=== PATIENT | female | born 1965 | race Caucasian/White ===

== ENCOUNTER → 2019-04-21 11:11 | Outpatient (BNVA) | payer BC, SELFPAY | PROVIDERS: Family Provider Nurse Practitioner Family; PCP Nurse Practitioner Family; Visit Provider Registered Nurse | DX: I10 Essential (primary) hypertension (principal); E03.9 Hypothyroidism, unspecified | CPT/HCPCS: 80053; 80061; 84443; 85025 ==

== ENCOUNTER → 2019-10-31 08:51 | Outpatient (BNVA) | payer BC, SELFPAY | PROVIDERS: Family Provider Nurse Practitioner Family; PCP Nurse Practitioner Family; Visit Provider Registered Nurse | DX: E03.9 Hypothyroidism, unspecified (principal); I10 Essential (primary) hypertension | CPT/HCPCS: 80061; 84443 ==

== ENCOUNTER → 2020-05-07 08:58 | Outpatient (BNVA) | payer BC, SELFPAY | PROVIDERS: Family Provider Nurse Practitioner Family; PCP Nurse Practitioner Family; Visit Provider Nurse Practitioner Family | DX: E03.9 Hypothyroidism, unspecified (principal); E78.2 Mixed hyperlipidemia; I10 Essential (primary) hypertension; E78.5 Hyperlipidemia, unspecified; E07.9 Disorder of thyroid, unspecified | CPT/HCPCS: 80053; 80061; 84443 ==

== ENCOUNTER → 2021-03-15 09:00 | Outpatient (BNVA) | payer BC, SELFPAY | PROVIDERS: Family Provider Nurse Practitioner Family; PCP Nurse Practitioner Family; Visit Provider Nurse Practitioner Family | DX: Z20.822 Contact with and (suspected) exposure to COVID-19 (principal) | CPT/HCPCS: 87635 ==

== ENCOUNTER → 2021-06-06 10:09 | Outpatient (BNVA) | payer BC, SELFPAY | PROVIDERS: Family Provider Nurse Practitioner Family; PCP Nurse Practitioner Family; Visit Provider Nurse Practitioner Family | DX: E03.9 Hypothyroidism, unspecified (principal); E78.5 Hyperlipidemia, unspecified; I10 Essential (primary) hypertension; E78.2 Mixed hyperlipidemia | CPT/HCPCS: 80053; 80061; 84443 ==

== ENCOUNTER → 2022-01-27 11:26 | Outpatient (BNVA) | payer BC, SELFPAY | PROVIDERS: Family Provider Nurse Practitioner Family; PCP Nurse Practitioner Family; Visit Provider Nurse Practitioner Family | DX: R05.9 Cough, unspecified (principal); J40 Bronchitis, not specified as acute or chronic; Z90.89 Acquired absence of other organs; Z20.822 Contact with and (suspected) exposure to COVID-19 | CPT/HCPCS: 87400; 87426 ==

== ENCOUNTER → 2022-06-05 08:19 | Outpatient (BNVA) | payer BC, SELFPAY | PROVIDERS: Family Provider Nurse Practitioner Family; PCP Nurse Practitioner Family; Visit Provider Nurse Practitioner Family | DX: E03.9 Hypothyroidism, unspecified (principal); I10 Essential (primary) hypertension; E78.5 Hyperlipidemia, unspecified | CPT/HCPCS: 80053; 80061; 84443 ==

== ENCOUNTER → 2022-10-25 08:26 | Outpatient (BNVA) | payer OTHER, SELFPAY | PROVIDERS: Family Provider Nurse Practitioner Family; PCP Nurse Practitioner Family; Visit Provider Nurse Practitioner Family | DX: E03.9 Hypothyroidism, unspecified (principal); R11.0 Nausea | CPT/HCPCS: 80053; 83690; 84443; 85025; 86140 ==

== ENCOUNTER 2023-01-04 10:54 | Outpatient (CLI) | payer OTHER, SELFPAY ==
--- NOTE | 2023-01-04 11:00 | MM_ITS ---
WS: [id number] SCREENING DIGITAL BREAST TOMOSYNTHESIS MAMMOGRAM WITH CAD HISTORY: Z12.31 COMPARISON: 05/01/2013 Bilateral CC and MLO with tomosynthesis and synthetic mammography submitted. Computer aided detection analyzed. Breast composition: The breasts are heterogeneously dense, which may obscure small masses. Well-circu mscribed ovoid mass anterior central RIGHT breast near 6:00 measures 2.8 x 1.9 cm. This mass was prob ably present in 2013 but margins were obscured by overlying fibroglandular tissue. Benign calcificati on LEFT breast. IMPRESSION: MM/[place] [id number] BI-RADS: 0-Incomplete: Need additional imaging evaluation FOLLOW UP: Need Additional Imaging Recommendation: Follow-up RIGHT breast ultrasound evaluation well-circumscribed mass just behind the nipple toward 6:00. Favor this is probably a fibroadenoma or cyst as it was probably present in 2013.
== END 2023-01-04 10:55 | disposition home or self-care (01) ==
LOC: MOBLMAM 10:57
PROVIDERS: Family Provider Nurse Practitioner Family; PCP Nurse Practitioner Family; Visit Provider Nurse Practitioner Family
DX: Z12.31 Encounter for screening mammogram for malignant neoplasm of breast (principal)
CPT/HCPCS: 77063; 77067

== ENCOUNTER 2023-01-29 09:09 | Outpatient (CLI) | payer OTHER, SELFPAY ==
--- NOTE | 2023-01-29 09:30 | US_ITS ---
WS: [id number] ULTRASOUND RIGHT BREAST, limited HISTORY: N60.09 - Solitary cyst of unspecified breast COMPARISON: 01/04/2023, 05/01/2013 TECHNIQUE: 2-D and Doppler. There is a simple cyst RIGHT breast at 6:00, 1 cm from the nipple measures 2.9 x 1.0 x 1.9 cm. No nicolas id component or increased vascularity. This corresponds to the mammographic abnormality. There is a s mall adjacent cyst measuring less than a centimeter. No solid mass. IMPRESSION: US/US breast RT limited* [id number] BI-RADS: 2-Benign FOLLOW-UP: 1 Year Follow-up Mammographic mass noted on 01/04/2023 corresponds to a benign cyst. Return to a nnual screening mammography.
== END 2023-01-29 09:10 | disposition home or self-care (01) ==
LOC: RAD 09:10
PROVIDERS: Family Provider Nurse Practitioner Family; PCP Nurse Practitioner Family; Visit Provider Nurse Practitioner Family
DX: N60.01 Solitary cyst of right breast (principal)
CPT/HCPCS: 76642

== ENCOUNTER → 2023-05-11 13:32 | Outpatient (BNVA) | payer OTHER, SELFPAY | PROVIDERS: Family Provider Nurse Practitioner Family; PCP Nurse Practitioner Family; Visit Provider Nurse Practitioner Family | DX: R05.9 Cough, unspecified (principal); J32.9 Chronic sinusitis, unspecified; J06.9 Acute upper respiratory infection, unspecified; N95.0 Postmenopausal bleeding | CPT/HCPCS: 87400; 87426 ==

== ENCOUNTER 2023-05-16 11:12 | Outpatient (CLI) | payer OTHER, SELFPAY ==
--- NOTE | 2023-05-16 11:45 | US_ITS ---
WS: [id number] US pelv w/transvag [id number] HISTORY: N95.0 - Postmenopausal bleeding COMPARISON: None available. Uterus: 7.1 cm x 5.1 cm x 3.6 cm. Uterus is retroverted on transvaginal imaging. There is a hypoechoic mass consistent with a fibroid i n the LEFT myometrium measuring 1.8 x 1.4 x 1.3 cm. Endometrium: 0.8 cm. Thickened endometrium with a few tiny cystic areas. No mass is identified. Right ovary: 2.2 cm x 1.3 cm x 1.7 cm. Normal size and vascularity, no cystic or solid masses. Small follicle. Left ovary: 2.3 cm x 2.0 cm x 1.8 cm. Normal size and vascularity, no cystic or solid masses. No free fluid in the cul-de-sac. IMPRESSION: 1. Endometrium is mildly thickened for postmenopausal patient. There are also a few tiny cystic area s present within the endometrium. No solid mass or increased vascularity. Consider evaluation by [facility] [facility] and possible biopsy of the endometrium as the patient is postmenopausal. 2. LEFT uterine fibroid measuring 1.8 x 1.4 x 1.3 cm.
== END 2023-05-16 11:13 | disposition home or self-care (01) ==
LOC: RAD 11:12
PROVIDERS: Family Provider Nurse Practitioner Family; PCP Nurse Practitioner Family; Visit Provider Nurse Practitioner Family
DX: N95.0 Postmenopausal bleeding (principal); R93.89 Abnormal findings on diagnostic imaging of other specified body structures; D25.9 Leiomyoma of uterus, unspecified
CPT/HCPCS: 76830; 76856; 80053; 80061; 81000; 84443; 85025; 86304; 87070; 87086; 87205; 88175

== ENCOUNTER → 2023-05-22 08:33 | Outpatient (BNVA) | payer OTHER, SELFPAY | PROVIDERS: Family Provider Nurse Practitioner Family; PCP Nurse Practitioner Family; Visit Provider Nurse Practitioner Family | DX: D72.829 Elevated white blood cell count, unspecified (principal) | CPT/HCPCS: 85025 ==

== ENCOUNTER 2023-07-19 10:45 | Day surgery (SDC) | payer OTHER, SELFPAY ==
[2023-07-19] VITALS (10 sets, daily range): BP systolic 96–159; BP diastolic 54–77; PULSE 59–69; RESP 10–19; TEMP 36.3–36.4; O2SAT 94–98; BMI 36.3
--- NOTE | 2023-07-19 01:45 | W.PM.OPSFHP ---
Same Day Surgery H&P Indication for Procedure/HPI DATE OF PROCEDURE: July 19, 2023 CHIEF COMPLAINT/INDICATIONFOR SURGICAL PROCEDURE: abnormal uterine bleeding PREOP DIAGNOSIS: abnormal uterine bleeding PLANNED PROCEDURE: Operation Date: 07/19/23 13:25 Proposed Procedures p Hysteroscopy Hysteroscopy w/ Endometrial Sampling(Not Applicable) - Richie Germain MD s Poylpectomy/ possible endometrial polypectomy 77710, N95.0, R93.89(Not Applicable) - Richie Germain MD 58 y.o. last normal menstrual period in 2018 began to have bleeding and spotting in April 2023 Medications/Allergies* Allergies/Adverse Reactions Allergy/AdvReac Type Severity Reaction Status Date / Time No Known Allergies Allergy Verified 07/18/23 12:32 Pertinent History/Comorbid Conditions* Medical History (Updated 05/17/23 @ 09:28 by SANTO Gunderson) Hyperlipidemia Hypothyroid Essential hypertension Obstructive sleep apnea Surgical History (Updated 01/27/22 @ 11:12 by SANTO Gunderson) Hx of tonsillectomy Hx of adenoidectomy Family History (Updated 05/29/23 @ 08:23 by Tania Ozuna LPN) Diabetes Grandmother Heart disease Father Mother Hypertension Mother Family/Other Uterine cancer Mother Denies family history of Colon cancer Ovarian cancer Prostate cancer Hypercholesteremia Breast cancer Thyroid disease Stroke Pertinent Exam Findings alert, oriented x 3, clear to auscultation bilaterally and regular rate & rhythm Pertinent Data 05-16-23 Pap NILM, negative HPV 05-16-23 pelvic sono 1.8 cm fibroid Endometrium 8 mm with small cystic areas Normal ovaries Recommendations Surgery/Procedure today Coding Level of Care Code Acute Code for Chg Fwd Time Spent (min) 20
[2023-07-19] MEDS: scopolamine 1.5 Patch 1 PATCH TRANSDERMA (11:20)
[2023-07-19] MEDS: sodium chloride 0.9% 1,000 ML 30 ML IV (11:21)
--- NOTE | 2023-07-19 11:49 | W.PM.OPSUD ---
Surgery/Procedure H&P Update DATE OF PROCEDURE: July 19, 2023 DATE H&P PERFORMED: 07/19/23 H&P UPDATE INFORMATION: I have reviewed H&P completed within last 30 days, I have examined patient prior to procedure and No changes to prior documentation PREOP DIAGNOSIS: abnormal uterine bleeding PLANNED PROCEDURE: Operation Date: 07/19/23 13:25 Proposed Procedures p Hysteroscopy Hysteroscopy w/ Endometrial Sampling(Not Applicable) - Richie Germain MD s Poylpectomy/ possible endometrial polypectomy 07433, N95.0, R93.89(Not Applicable) - Richie Germain MD
--- NOTE | 2023-07-19 12:04 | ANES.PREANE2 ---
Pre-Anesthetic Assessment Height/Weight: Height 1.68 m Weight 102.058 kg Temp Pulse Resp BP Pulse Ox O2 Del Method 97.4 F L 59 L 18 159/77 96 Room Air 07/19/23 11:08 07/19/23 11:08 07/19/23 11:08 07/19/23 11:08 07/19/23 11:08 07/19/23 11:08 Preop Diagnosis: abnormal uterine bleeding Operation Date: 07/19/23 13:25 Proposed Procedures p Hysteroscopy Hysteroscopy w/ Endometrial Sampling(Not Applicable) - Richie Germain MD s Poylpectomy/ possible endometrial polypectomy 14200, N95.0, R93.89(Not Applicable) - Richie Germain MD Familial anesthetic complications: None Was Beta Lora taken within 24 hours: N/A Was Clonidine taken within 24 hours: N/A Last intake: Intake Last Liquid Date 07/18/23 Last Liquid Time 23:50 Last Solid Date 07/18/23 Last Solid Time 23:40 Social No alcohol and No tobacco Exam alert, oriented x 3, clear to auscultation bilaterally and regular rate & rhythm Airway Mallampati: Class I Dentition: chipped CV/HEM Hypertension Metabolic Hyperlipidemia and Thyroid Disease Anesthetic Plan ASA status: 2 Anesthesia: General Risk of > 500 ml blood loss (7ml/kg in children): No Medications/Allergies Home Medications Medication Instructions Recorded Confirmed Last Taken Type fluticasone propionate 50 1 spray intranasal DAILY #16 grams 05/11/23 07/18/23 Unknown Rx mcg/actuation nasal spray,suspension (Flonase Allergy Relief) ondansetron HCl 4 mg tablet 4 mg PO DAILY PRN nausea and 06/11/23 07/18/23 Unknown Rx vomiting 4 days #10 tabs atenolol 50 mg tablet 50 mg PO DAILY 07/19/23 07/19/23 07/18/23 21:30 History levothyroxine 88 mcg tablet 88 mcg PO DAILY 07/19/23 07/19/23 07/18/23 History rosuvastatin 5 mg tablet 5 mg PO DAILY 07/19/23 07/19/23 07/17/23 History Allergies Allergy/AdvReac Type Severity Reaction Status Date / Time No Known Allergies Allergy Verified 07/18/23 12:32 Current Medications Generic Name Dose Route Start Last Admin Trade Name Freq PRN Reason Stop Dose Admin Sodium Chloride 1,000 mls @ 30 mls/hr 07/19/23 11:00 07/19/23 11:21 Sodium Chloride 0.9% IV 07/20/23 10:59 30 mls/hr .Q24H ISAURA Administration PFSH Anesthesia Medical History Hyperlipidemia Hypothyroid Essential hypertension Obstructive sleep apnea Surgical History Hx of tonsillectomy Hx of adenoidectomy Family History (Updated 05/29/23 @ 08:23 by Tania Ozuna LPN) Father Heart disease Mother Hypertension Heart disease Uterine cancer Grandmother Diabetes Family/Other Hypertension Denies family history of Colon cancer Ovarian cancer Prostate cancer Hypercholesteremia Breast cancer Thyroid disease Stroke Data Anesthesia Cardiac Studies: No Data to Display
--- NOTE | 2023-07-19 14:05 | ANE.PACU2 ---
Inpatient post-anesthesia follow up: Airway intact: Yes Vital signs: Temperature 97.6 F Pulse Rate 67 Respiratory Rate 17 Blood Pressure 117/54 Pulse Oximetry 98 Oxygen Delivery Me thod Room Air Oxygen Flow Rate Fraction of Inspir ed Oxygen Hydration adequate: Yes Nausea and vomiting: No Pain level: 1 Mental status: Baseline
--- NOTE | 2023-07-19 17:10 | PM.OP ---
Operative Report Date of procedure: July 19, 2023 Pre-op diagnosis: abnormal uterine bleeding Post-op diagnosis: same Post-op findings: A single moderately large endometrial polyp Small amount of endometrial tissue Procedure done: Hysteroscopy Endometrial sampling and polypectomy with Myosure Specimens removed/disposition: endometrial tissue Surgeon: Richie Germain MD Anesthesia: General Estimated blood loss (mL): 0 Complications: none Findings: A single moderately large endometrial polyp Small amount of endometrial tissue Brief History: 58 y.o. with postmenopausal uterine bleeding Procedure: Informed consent signed. Patient was taken to the operating room. Anesthesia was induced. Patient was placed in dorsolithotomy position, prepped and draped for hysteroscopy. A bivalve speculum was placed in the vagina. The anterior lip of the cervix was grasped with a sharp-toothed tenaculum. The cervix was serially dilated with Hegar dilators. . A hysteroscope was placed into the endometrial cavity. The endometrial cavity was seen have a single moderately large endometrial polyp. There was a small amount of endometrial tissue. A Myosure was then inserted and the polyp was removed. Endometrial tissue was also removed. The endometrial cavity was seen to be intact. The hysteroscope and Myosure were then removed. Endometrial tissue was sent to pathology. The sharp-toothed tenaculum was removed. There was no bleeding from the endometrial cavity or cervix. The patient was then placed supine and awakened and taken to the PACU. Postop condition: stable EBL: none Sponge and instruments counts were normal x 2 Complications: none
== END 2023-07-19 14:05 | disposition home or self-care (01) ==
PROVIDERS: PCP Nurse Practitioner Family; Visit Provider Obstetrics & Gynecology
PROC: 0UJD8ZZ Inspection of Uterus and Cervix, Via Natural or Artificial Opening Endoscopic (ICD-10-PCS; CPT 58555; principal; 2023-07-19 13:15)
PROC: (CPT 58558; 2023-07-19 13:15)
DX: N93.9 Abnormal uterine and vaginal bleeding, unspecified (principal); N84.0 Polyp of corpus uteri; I10 Essential (primary) hypertension; E78.5 Hyperlipidemia, unspecified; E03.9 Hypothyroidism, unspecified; G47.33 Obstructive sleep apnea (adult) (pediatric)
CPT/HCPCS: 58558; 88305; J1100; J1885; J2405; J2704; J3010; J7030

== ENCOUNTER → 2023-11-21 10:10 | Outpatient (BNVA) | payer OTHER, SELFPAY | PROVIDERS: PCP Nurse Practitioner Family; Visit Provider Nurse Practitioner Family | DX: I10 Essential (primary) hypertension (principal); E78.2 Mixed hyperlipidemia; E03.9 Hypothyroidism, unspecified | CPT/HCPCS: 80053; 80061; 84443 ==

== ENCOUNTER → 2023-12-31 08:23 | Outpatient (BNVA) | payer OTHER, SELFPAY | PROVIDERS: PCP Nurse Practitioner Family; Visit Provider Nurse Practitioner Family | DX: N28.9 Disorder of kidney and ureter, unspecified (principal) | CPT/HCPCS: 80053 ==

== ENCOUNTER 2024-02-06 08:02 | Outpatient (CLI) | payer OTHER, SELFPAY ==
--- NOTE | 2024-02-06 08:04 | MM_ITS ---
WS: [id number] Bilateral screening 3D tomosynthesis digital mammogram, 02/06/2024 8:09 AM Clinical Data: SCREENING Comparison: 01/04/2023, 05/01/2013. Findings: No spiculated masses or clustered calcifications are seen. There are no secondary signs of carcinoma . There is an oval 2.8 cm density in the midportion of the right breast unchanged. MM/MM scr BI tomosynthesis [id number] Impression: Negative bilateral mammogram unchanged. Recommend annual screening mammograms. BIRADS: 2 - Benign FOLLOW UP: 1 Year Follow-up DENSITY: The breasts are heterogeneously dense, which may obscure small masses. The CAD truckload checker was used
== END 2024-02-06 08:03 | disposition home or self-care (01) ==
LOC: RAD 08:03
PROVIDERS: PCP Nurse Practitioner Family; Visit Provider Nurse Practitioner Family
DX: Z12.31 Encounter for screening mammogram for malignant neoplasm of breast (principal); N63.41 Unspecified lump in right breast, subareolar; N28.9 Disorder of kidney and ureter, unspecified
CPT/HCPCS: 77063; 77067; 80053

== ENCOUNTER → 2024-03-26 10:01 | Outpatient (BNVA) | payer OTHER, SELFPAY | PROVIDERS: PCP Nurse Practitioner Family; Visit Provider Nurse Practitioner Family | DX: N28.9 Disorder of kidney and ureter, unspecified (principal) | CPT/HCPCS: 80069; 81000; 82043 ==

== ENCOUNTER → 2024-09-29 08:57 | Outpatient (BNVA) | payer OTHER, SELFPAY | PROVIDERS: PCP Nurse Practitioner Family; Visit Provider Internal Medicine Nephrology | DX: N28.9 Disorder of kidney and ureter, unspecified (principal) | CPT/HCPCS: 80069; 82043; 82306; 82310; 83970; 85007; 85027 ==

== ENCOUNTER 2024-10-17 15:39 | Outpatient (CLI) | payer OTHER, SELFPAY ==
--- NOTE | 2024-10-17 15:52 | USR_ITS ---
PROCEDURE INFORMATION: Exam: US Retroperitoneal, Complete, Kidneys and Bladder Exam date and time: 10/17/2024 4:08 PM Age: 59 years old Clinical indication: Condition or disease; Kidney or ureter condition; Chronic kidney disease or failure; Not specified; Additional info: Ckd TECHNIQUE: Imaging protocol: Real-time ultrasound of the retroperitoneum with image documentation. Complete exam focused on the bilateral kidneys and urinary bladder. COMPARISON: US pelv w/transvag [id number] 05/16/2023 11:50 AM FINDINGS: Right kidney: Normal. No stones. No hydronephrosis. Left kidney: Normal. No stones. No hydronephrosis. Urinary bladder: Unremarkable. US/US renal BI* [id number] IMPRESSION: Unremarkable kidneys and bladder.
== END 2024-10-17 15:40 | disposition home or self-care (01) ==
LOC: RAD 15:41
PROVIDERS: PCP Nurse Practitioner Family; Visit Provider Registered Nurse
DX: N18.32 Chronic kidney disease, stage 3b (principal)
CPT/HCPCS: 76770